=== PATIENT | female | born 1990 ===

== ENCOUNTER 2016-11-01 10:35 | Inpatient (IN) | payer OTHER ==
--- NOTE | 2016-11-01 13:26 | US ---
BIOPHYSICAL PROFILE COMPARISON: Ultrasound complete less than 14 week, 03/26/2016 HISTORY: Gestational age 37 weeks 6 days. Decreased movement. Nonreactive nonstress test. FINDINGS: breathing movements: 0 motion: 2 tone: 0 Amniotic fluid volume: 2 (CHAVO 8.0 cm) deepest vertical pocket 4.9 cm heart rate: 136 bpm Presentation: Footling breech anatomy: The right kidney and right renal artery are not visible. IMPRESSION: 1. Abnormal biophysical profile score 4 out of 8. 2. Low normal amniotic fluid index 8.0 cm. 3. Footling breech position. 4. Nonvisualization of the right kidney in the right renal artery. 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 The results were discussed with August Mackay M.D. 11/01/2016 at 13:20
[2016-11-01] MEDS ORDERED: TERBUTALINE SULFATE 1 MG/ML VIAL SUB-Q ONE (14:12)
--- NOTE | 2016-11-01 14:12 | PDOC36 ---
Provider Note Subject: cc: Admission H&P HPI: 26 y.o. year old XENIA 11/15/2016, by Last Menstrual Period at 38w0d. Patient presents from clinic today with decreased FM and non reactive monitoring. Patient underwent BPP with 4/8 score due to loss of tone and breathing. Additionally she was found in breech position and with CHAVO of 8. REVIEW OF SYSTEMS GENERAL: No fever or headache EYES: No double or blurry vision. CARDIOVASCULAR: No chest pain. RESPIRATORY: No severe shortness of breath or cough. GASTROINTESTINAL: No nausea or vomiting or right upper quadrant pain. PSYCHIATRIC: No anxiety or depression. PROBLEMS Patient Active Problem List Diagnosis Date Noted Normal 03/29/2016 Threatened miscarriage 03/29/2016 OB HISTORY #: 1, Date: 07/01/10, Sex: Female, Weight: 3.118 kg (6 lb 14 oz), GA: 40w0d, Delivery: Vaginal, Spontaneous Delivery, Apgar1: 6, Apgar5: 9, Living: Yes, Comments: cord around body/arm x1 #: 2, Current Dating: Based On XENIA GA Dif Comments GA Cyc Lut BC Entered By Date Last Menstrual Period on 02/09/16 (Exact Date) 11/15/16 Working Planned , pt and partner are happy. Regine Segovia RN 04/20/16 Ultrasound on 03/26/16 11/17/16 -2d 6w2d Regine Segovia RN 04/20/16 Ultrasound on 06/28/16 11/19/16 -4d c/w lmp. girl. normal survey. ant grade 1 placenta, no previa. normal fluid. 19w3d Tatiana Hernandez MD 06/28/16 PSH No past surgical history on file. SOC HX reports that she has never smoked. She has never used smokeless tobacco. She reports that she does not drink alcohol or use illicit drugs. ALL No Known Allergies MEDICATIONS Current outpatient prescriptions: acetaminophen (TYLENOL) 325 MG tablet, Take 2 tablets (650 mg total) by mouth 2 (two) times a day as needed for headaches., Disp: 60 tablet, Rfl: 2 diphenhydrAMINE (BENADRYL) 25 mg capsule, Take 1 capsule (25 mg total) by mouth 2 (two) times a day as needed for itching Indications: Runny Nose., Disp: 30 capsule, Rfl: 0 Vit-Iron Carbonyl-FA (PNV TABS 29-1) 29-1 MG tablet, TAKE ONE TABLET BY MOUTH EVERY DAY, Disp: 90 tablet, Rfl: 3 psyllium (METAMUCIL) 58.6 % powder, PO BID after meals, mix with 8oz of water , Disp: 283 g, Rfl: 12 PHYSICAL EXAMINATION VITAL SIGNS: Afebrile, BP 119/76 Estimated body mass index is 31.62 kg/(m^2) as calculated from the following: Height as of 10/21/16: 1.49 m (4' 10.66"). Weight as of an earlier encounter on 11/01/16: 70.2 kg (154 lb 12.2 oz). Total weight gain is 8.8 kg (19 lb 6.4 oz) FHT: 120's baseline, mod verónica, + accels, no decels Concepcion: absent ctx SVE: deferred at this time till after version GENERAL: No distress CARDIOVASCULAR: Regular rate and rhythm, no murmur RESPIRATORY: Clear to auscultation bilaterally, respiratory effort is nonlabored at rest. GASTROINTESTINAL: Gravid no fundal tenderness, transverse position PSYCHIATRIC: Alert and oriented x3, judgement and memory is intact, mood is pleasant. LABS & STUDIES A+ Antibody- Rubella Immune Hep B- HIV- GC/Chlamydia- Trep- Hgb 12 GBS neg ASSESSMENT 26 y.o. year old XENIA 11/15/2016, by Last Menstrual Period at 38w0d who presents with BPP 4/8 in breech position. PLAN Breech/transverse position- COunseled pt on concern of non reassuring findings of BPP of 4/8. We reviewed that I believe she needs to proceed with delivery due to this findings. I spoke with Dr. Orourke at [facility] regarding version and they agree given FM is category I and CHAVO of 8 without clear oligo could be attempted. I reviewed the risks and benefits of this procedure with family. They would like to proceed. If we are unsuccessful they understand we will then need to proceed with LTCS. Hopefully we can turn baby and proceed with IOL however. Right kidney discrepancy- Could be secondary to late term US and poor visualization. 19 week US with visualization of bilateral kidneys. They also could be agenesis vs fusion of single kidney. Will need f/u US. FWB- category I RH- + GBS neg
[2016-11-01] MEDS ORDERED: LACTATED RINGERS 1,000 ML ONE (14:25)
[2016-11-01] MEDS ORDERED: IV START KIT ONE (14:25)
[2016-11-01] MEDS: LACTATED RINGERS 1,000 ML IV SCH ×3 (14:50→19:43)
[2016-11-01 15:16] LABS: HEMATOCRIT 39.2 % (37.0-47.0); HEMOGLOBIN 13.1 gm/l (12.0-16.0); MEAN CORPUSCULAR HEMOGLOBIN 30.8 pg (27.0-31.0); MEAN CORPUSCULAR HGB CONC 33.4 g/dl (33.0-37.0); RED CELL DISTRIBUTION WIDTH 14.7 % (11.5-14.5)
[2016-11-01 15:48] VITALS: BMI 31.6
[2016-11-01] MEDS ORDERED: CEFAZOLIN SODIUM 2 GRAM DUPLEX 2 G in Premix (D5W) 50 ml 1 EACH IV PRN (16:44)
[2016-11-01] MEDS ORDERED: LACTATED RINGERS 1,000 ML IV SCH (16:45)
[2016-11-01] MEDS ORDERED: MORPHINE SULFATE (DURAMORPH) 1 MG/ML 10ML AMP ONE (16:47)
[2016-11-01] MEDS ORDERED: EPHEDRINE SULFATE UD SYR 25 MG 25 MG/5 ML SYRINGE IV ONE (16:47)
[2016-11-01] MEDS ORDERED: FENTANYL 100 MCG/2 ML VIAL ONE ×2 (16:48→17:56)
[2016-11-01] MEDS ORDERED: OXYTOCIN 10 UNITS/ML VIAL ONE (16:49)
[2016-11-01] MEDS ORDERED: SPINAL PROCEDURAL TRAY 1 EACH ONE (16:51)
[2016-11-01] MEDS ORDERED: CEFAZOLIN SODIUM 2 GRAM DUPLEX 50 ML IV ONE (16:52)
--- NOTE | 2016-11-01 16:55 | PDOC36 ---
Provider Note Subject: Procedure note: External cephalic version Patient was counseled on risks and benefits of procedure including distress, need for urgent LTCS, or failure of the procedure. Intravenous access was obtained and CBC was evaluated with normal values. Terbutaline was then administered at start of procedure. monitoring was noted to be category 1 with baseline in 120's and good accels appreciated. Bedside ultrasound identified in transverse position with footling breech. Pressure was then applied on maternal left to elevated from pelvis. The head did rotate well downward but after release returned to maternal left in unstable lie. We performed second attempt at rotation with godo descent of head below and body in upper abd however again the infant rotated back. I then counseled family on aborting procedure due to unstable lie of infant. Given BPP values and concern for risk of I counseled on proceeding with LTCS. I reviewed risks and benefits of that procedure, including bleeding, infection and injury to surrounding structures- intestines, bladder, urterus, vessels, ureters. Patient is open to blood transfusion should she require that assistance. We also reviewed remote risk of hysterectomy in the event bleeding is uncontrolled.
[2016-11-01] MEDS ORDERED: BUPIVACAINE 0.75% SPINAL AMPUL 2 ML ONE (16:56)
[2016-11-01] MEDS ORDERED: KETAMINE HCL UD SYRINGE 100 MG/2 ML IV ONE (18:05)
[2016-11-01] MEDS ORDERED: SUCCINYLCHOLINE CHL 20 MG/ML DOSE ONE (18:06)
[2016-11-01] MEDS ORDERED: PROPOFOL 20 ML IV ONE (18:06)
[2016-11-01] MEDS ORDERED: KETOROLAC TROMETHAMINE 30 MG/ML 1 ML VIAL ONE (18:10)
[2016-11-01] MEDS ORDERED: ONDANSETRON 4 MG/2ML 2 ML VIAL ONE (18:13)
--- NOTE | 2016-11-01 18:49 | PDOC37 ---
Procedure: Primary Low Transverse Section Date of Procedure: 11/01/16 Preoperative Diagnosis: 1. 38 week intrauterine . 2. Breech presentation 3. Failed version 4. Non reassuring Biophysical profile Postoperative Diagnosis: Same Surgeon: August Mackay MD Assist: Carlos Deal CNM Indication for Procedure: 26 year old, at 38 weeks 0 days who presented with non reassuring BPP in setting of non reactive monitoring. Patient underwent failed cephalic version. Anesthesia: Spinal with Duramorph and converted to general when this was noted to be incomplete block. Complications: None Estimated Blood Loss: 600 mLs IV Fluids: 1500 mLs of LR Medications: 2 gm of Ancef for routine prophylaxis. 20 units of Pitocin. Urine Output: 100 mLs of clear urine Findings: Fluid clear. Normal uterus, ovaries, and tubes. Procedure: The patient was taken to the operating room where spinal anesthesia was placed. She was then prepared and draped in the normal sterile fashion in the dorsal supine position with a leftward tilt. A timeout was performed. The patient was pinched several times on lower and upper abd with good anaesthesia noted. A Pfannensteil skin incision was then made with the scalpel and carried through to the underlying layer of fascia with the scalpel. At this time the patient began to have a good deal of pain. We then converted to general anaesthesia. After this was complete the fascia was incised in the midline and the incision extended laterally with the Villagomez scissors. The superior aspect of the fascial incision was then grasped with the Christel clamps, elevated, and the underlying rectus muscles dissected off bluntly and sharply where needed. Attention was then turned to the inferior aspect of the incision which, in a similar fashion, was grasped, tented up with the Christel clamps, and the rectus muscle dissected off bluntly and sharply with Villagomez scissors. The rectus muscles were then in the midline, and the peritoneum was identified and entered bluntly. The peritoneal incision was then extended with good visualization of the bladder. The bladder blade was then inserted and the lower uterine segment incised in a transverse fashion with the scalpel. The uterine incision was then extended laterally by pulling superolaterally on both sides. Membranes were ruptured and fluid was clear. The bladder blade was removed and the lower legs were easily identified. Gentle traction was used to deliver the right followed by left leg. The body was rotated prone and the right arm followed by left arm were rotated out. The head was then readily delivered with fundal pressure and gentle traction. The nose and mouth were suctioned with bulb suction and the cord was clamped and cut. The was handed off to the waiting staff antisubmarine officer. Cord gases were sent. The placenta was then delivered with gentle cord traction. The uterus was then exteriorized and cleared of all clots and debris. The uterine incision was repaired with 0 vicryl in a running, locked fashion. A second layer of the same suture was used in an imbricating fashion. Two interrupted sutures with 0 Vicryl were used to obtaine excellent hemostasis. The gutters were cleared of all clots. The uterus was returned to the abdomen. The peritoneum was closed with 3-0 vicryl. The fascia was reapproximated with 0 Vicryl in a running fashion. The subcutaneous tissue was reapproximated with three interrupted 0 vicryl sutures. The skin was closed with rosalina. The patient tolerated the procedure well. Sponge, lap and needle counts were correct times three. A debriefing was held at the end of the procedure with anesthesia and nursing staff. The patient was taken to the recovery room in stable condition.
[2016-11-01] MEDS ORDERED: HYDROMORPHONE HCL 2 MG/ML SYRINGE IV PRN (19:00)
[2016-11-01] MEDS ORDERED: ONDANSETRON 4 MG/2ML 2 ML VIAL IV PRN ×2 (19:00→20:47)
[2016-11-01] MEDS ORDERED: NALOXONE HCL 0.4 MG/ML VIAL IV PRN (19:00)
[2016-11-01] MEDS ORDERED: MORPHINE SULFATE 2 MG/ML SYRINGE IV PRN (19:00)
[2016-11-01] MEDS ORDERED: HYDROMORPHONE HCL 1 MG/ML SYRINGE IV PRN (19:00)
[2016-11-01] MEDS ORDERED: MORPHINE SULFATE 10 MG/ML SYRINGE IV PRN (19:00)
[2016-11-01] MEDS ORDERED: EPHEDRINE SULFATE 50 MG/ML 1ML VIAL IV PRN (19:00)
[2016-11-01] MEDS ORDERED: DIPHENHYDRAMINE HCL 50 MG/1 ML VIAL IV PRN ×2 (19:00→20:47)
[2016-11-01] MEDS ORDERED: NALBUPHINE HCL 20 MG/ML AMP IV PRN (19:00)
[2016-11-01] MEDS ORDERED: MORPHINE SULFATE 4 MG/ML SYRINGE IV PRN (19:00)
[2016-11-01] MEDS ORDERED: OXYTOCIN IN LR 500 ML IV ONE (19:06)
[2016-11-01] MEDS ORDERED: PROMETHAZINE HCL 25 MG/ML VIAL IM ONE (19:15)
[2016-11-01] MEDS ORDERED: LANOLIN 50 APPLIC/7G TUBE TP PRN (20:47)
[2016-11-01] MEDS ORDERED: DIPHENHYDRAMINE HCL 25 MG CAPSULE PO PRN (20:47)
[2016-11-01] MEDS: DOCUSATE SODIUM 100 MG CAPSULE PO SCH (21:56)
[2016-11-02] MEDS ORDERED: LACTATED RINGERS 1,000 ML ONE (00:40)
[2016-11-02] MEDS: KETOROLAC TROMETHAMINE 30 MG/ML 1 ML VIAL IV PRN ×3 (00:45→14:08)
[2016-11-02] MEDS: LACTATED RINGERS 1,000 ML IV SCH ×3 (00:47→19:06)
[2016-11-02 06:34] LABS: HEMATOCRIT 28.9 % (37.0-47.0); HEMOGLOBIN 9.6 gm/l (12.0-16.0)
[2016-11-02] MEDS: DOCUSATE SODIUM 100 MG CAPSULE PO SCH ×2 (09:56→20:35)
[2016-11-02] MEDS: PRENATAL VIT/FE FUMARATE/FA 1 TABLET PO SCH (09:56)
--- NOTE | 2016-11-02 11:00 | PDOC44 ---
- Subjective Day: 1 (post-operative day 1) Patient doing well. States pain controlled with meds. Fowler still in. Passing gas. Tolerating PO. Reports Flatus, Reports Pain Tolerable, Reports , Reports Lochia Light, Reports Tolerating Regular Diet, Denies Nausea, Denies Vomiting - Objective Temp Pulse Resp BP Pulse Ox 98.3 F 74 18 105/53 11/02/16 08:20 11/02/16 08:20 11/02/16 08:20 11/02/16 08:20 Lab Results 11/02/16 11/01/16 06:10 14:50 WBC 8.6 RBC 4.26 Hgb 9.6 L D 13.1 Hct 28.9 L 39.2 Plt Count 303 11/01/16 14:50 RDW 14.7 H Current Medications Generic Name Dose Route Start Last Admin Trade Name Freq PRN Reason Stop Dose Admin Diphenhydramine HCl 25 - 50 mg 11/01/16 19:00 Benadryl IV 11/02/16 17:25 Q4H PRN Itching Diphenhydramine HCl 25 - 50 mg 11/01/16 20:47 Benadryl PO Q6H PRN Itching (Mild/Moderate) Diphenhydramine HCl 25 - 50 mg 11/01/16 20:47 Benadryl IV Q6H PRN Itching (Severe) Docusate Sodium 100 mg 11/01/16 21:00 11/02/16 09:56 Colace PO 100 mg BID HALEIGH Administration Emollient Ointment 1 applic 11/01/16 20:47 [id number] TP PRN PRN sore nipples Ephedrine Sulfate 5 - 10 mg 11/01/16 19:00 Ephedrine Sulfate IV 11/02/16 17:25 Q5M PRN Hydromorphone HCl 0.5 - 2 mg 11/01/16 19:00 Dilaudid IV 11/02/16 17:25 Q1H PRN Pain (Breakthrough) Hydromorphone HCl 0.5 - 2 mg 11/01/16 19:00 Dilaudid IV 11/02/16 17:25 Q1H PRN Pain Lactated Ringer's 1,000 mls @ 100 mls/hr 11/02/16 07:00 11/02/16 00:47 Lactated Ringers IV 100 mls/hr .Q10H HALEIGH Administration Ibuprofen 800 mg 11/02/16 00:15 Motrin PO Q6H PRN Pain Ketorolac Tromethamine 30 mg 11/02/16 00:15 11/02/16 06:30 Toradol IV 11/06/16 18:15 30 mg Q6H PRN Administration Pain (Mild/Moderate) Morphine Sulfate 1 - 5 mg 11/01/16 19:00 Morphine Sulfate IV 11/02/16 17:25 Q1H PRN Pain (Breakthrough) Morphine Sulfate 1 - 5 mg 11/01/16 19:00 Morphine Sulfate IV 11/02/16 17:25 Q1H PRN Pain (Breakthrough) Morphine Sulfate 1 - 5 mg 11/01/16 19:00 Morphine Sulfate IV 11/02/16 17:25 Q1H PRN Pain (Breakthrough) Multivi/Iron Carb/Fe Sulf/FA/Prenat 1 tab 11/02/16 09:00 11/02/16 09:56 Plus PO 1 tab DAILY HALEIGH Administration Nalbuphine HCl 1 - 5 mg 11/01/16 19:00 Nubain IV 11/02/16 17:25 Q4H PRN Itching Naloxone HCl 0.2 - 0.4 mg 11/01/16 19:00 Narcan IV 11/02/16 17:25 Q5M PRN Ondansetron HCl 4 mg 11/01/16 19:00 Zofran IV 11/02/16 17:25 Q6H PRN Nausea/Vomiting Ondansetron HCl 4 mg 11/01/16 20:47 Zofran IV Q6H PRN Nausea/Vomiting Oxycodone/Acetaminophen 1 - 2 tab 11/01/16 20:47 Percocet 5/325 PO Q4H PRN Pain (Moderate) Sodium Chloride 10 ml 11/01/16 20:47 11/02/16 09:56 Normal Saline 10ml Flush IV 10 ml PRN PRN Administration IV Flush - Physical Exam General: Afebrile, No Acute Distress Psych/Mental Status: Mood/Affect Appropriate, Bonding Well Neurological: Alert, Normal Speech Lungs: Clear to Auscultation Bilaterally, Normal Air Movement Cardiovascular: Regular Rate and Rhythm, Normal S1, Normal S2 Fundus: Firm, Midline Extremities: Full ROM, No Edema, No Tenderness Skin: Normal Color, Warm, Dry, Intact, No Rash Wound HEAD BUYER TOBACCO: Dressing Clean/Dry/Intact - Problems:Assessment/Plan (1) delivery delivered Status: Acute Assessment/Plan: POD #1 s/p primary C/S for breech after failed version. Doing well Continue post-op care BF support Mild anemia, plan to start iron as outpatient. Disposition: Stable
[2016-11-02] MEDS: IBUPROFEN 800 MG TABLET PO PRN ×2 (17:44→23:21)
[2016-11-03] MEDS: LACTATED RINGERS 1,000 ML IV SCH ×2 (08:58→14:06)
[2016-11-03] MEDS: PRENATAL VIT/FE FUMARATE/FA 1 TABLET PO SCH (09:16)
[2016-11-03] MEDS: DOCUSATE SODIUM 100 MG CAPSULE PO SCH (09:16)
[2016-11-03] MEDS: IBUPROFEN 800 MG TABLET PO PRN ×3 (09:16→22:40)
--- NOTE | 2016-11-03 10:25 | PDOC44 ---
- Subjective Day: 2 lightheaded in bathroom feels well now. tolerating regular diet. minimal lochia Reports Flatus, Reports Pain Tolerable, Reports , Reports Lochia Light, Reports Tolerating Regular Diet - Objective Temp Pulse Resp BP Pulse Ox 98.1 F 76 18 110/58 11/03/16 08:00 11/03/16 09:15 11/03/16 08:00 11/03/16 09:15 Current Medications Generic Name Dose Route Start Last Admin Trade Name Freq PRN Reason Stop Dose Admin Diphenhydramine HCl 25 - 50 mg 11/01/16 20:47 Benadryl PO Q6H PRN Itching (Mild/Moderate) Diphenhydramine HCl 25 - 50 mg 11/01/16 20:47 Benadryl IV Q6H PRN Itching (Severe) Docusate Sodium 100 mg 11/01/16 21:00 11/03/16 09:16 Colace PO 100 mg BID HALEIGH Administration Emollient Ointment 1 applic 11/01/16 20:47 [id number] TP PRN PRN sore nipples Lactated Ringer's 1,000 mls @ 100 mls/hr 11/02/16 07:00 11/03/16 08:58 Lactated Ringers IV Not Given .Q10H HALEIGH Ibuprofen 800 mg 11/02/16 00:15 11/03/16 09:16 Motrin PO 800 mg Q6H PRN Administration Pain Ketorolac Tromethamine 30 mg 11/02/16 00:15 11/02/16 14:08 Toradol IV 11/06/16 18:15 30 mg Q6H PRN Administration Pain (Mild/Moderate) Multivi/Iron Carb/Fe Sulf/FA/Prenat 1 tab 11/02/16 09:00 11/03/16 09:16 Plus PO 1 tab DAILY HALEIGH Administration Ondansetron HCl 4 mg 11/01/16 20:47 Zofran IV Q6H PRN Nausea/Vomiting Oxycodone/Acetaminophen 1 - 2 tab 11/01/16 20:47 Percocet 5/325 PO Q4H PRN Pain (Moderate) Sodium Chloride 10 ml 11/01/16 20:47 11/03/16 08:03 Normal Saline 10ml Flush IV 10 ml PRN PRN Administration IV Flush - Physical Exam General: Afebrile Neurological: Alert Lungs: Clear to Auscultation Bilaterally Cardiovascular: Regular Rate and Rhythm Breast: Soft Fundus: Firm Abdomen: Normal Bowel Sounds Rectal Exam: Deferred Extremities: Other (nt no edema) Wound PEARL DIVER: Dressing Clean/Dry/Intact, [place] Intact - Problems:Assessment/Plan (1) delivery delivered Status: Acute Assessment/Plan: POD #2 s/p primary C/S for breech after failed version. Doing well Continue post-op care BF support sycope this am push fluids, rest home tomorrow Disposition: Anticipate DC Home Tomorrow
[2016-11-04] MEDS: OXYCODONE/ACETAMINOPHEN 5/325 MG TABLET PO PRN ×2 (01:38→07:12)
[2016-11-04 07:02] VITALS: BP 110/58
[2016-11-04] MEDS: IBUPROFEN 800 MG TABLET PO PRN (07:12)
--- NOTE | 2016-11-04 09:01 | PDOC39B ---
Hospital Course: ADMIT DATE: 11/01/16 DISCHARGE DATE: 11/02/16 ADMISSION DIAGNOSES: breech presentation, term PROCEDURES: Primary C/S HISTORY OF PRESENT ILLNESS: 26 year old G2 T1 L1 at 38 weeks 0 days presenting with breech presentation, version was attempted and failed. HOSPITAL COURSE: The patient underwent primary LTCS for breech. She is doing well. No concerns. By day of discharge the patient is ambulating, eating, voiding, and passing flatus without difficulty. Pain is controlled and lochia is appropriate. She is [] - Physical Exam Vital Signs: Temp Pulse Resp BP Pulse Ox 98.3 F 72 16 110/58 11/04/16 06:57 11/04/16 06:57 11/04/16 06:57 11/04/16 06:57 General: Afebrile Psych/Mental Status: Mood/Affect Appropriate Neurological: Alert HEENT: Atraumatic Lungs: Clear to Auscultation Bilaterally Cardiovascular: Regular Rate and Rhythm Breast: Soft Fundus: Firm, At Umbilicus Abdomen: Normal Bowel Sounds Genitourinary: Normal Female Genitalia Lochia: Light Rectal Exam: Deferred Extremities: Other (nt, no edema) Skin: Normal Color Wound: Rosalina Intact - Discharge Diagnosis (1) delivery delivered Status: Acute Assessment/Plan: POD #3 s/p primary C/S for breech after failed version. Doing well Continue post-op care BF support home today remove rosalina - Discharge Plan Condition: Good Disposition: Home Prescriptions: Ibuprofen [Motrin] 800 mg PO Q8H PRN #30 tablet PRN Reason: Pain Oxycodone HCl/Acetaminophen [PERCOCET 5/325 MG TABLET (SHF)] 1 tab PO Q4-6H PRN #30 tab PRN Reason: Pain Follow-Up: Tatiana Hernandez MD [Primary Care Provider] - In 2 weeks
== END 2016-11-04 12:12 | disposition home or self-care (01) | DRG 766 ==
LOC: FBC 10:35 → FBCOUT 10:35 → FBC 13:55
PROVIDERS: ADMIT Family Medicine; ATTEND Family Medicine
PROC: 10D00Z1 Extraction of Products of Conception, Low, Open Approach (ICD-10-PCS; principal; 2016-11-01)
PROC: 10S0XZZ Reposition Products of Conception, External Approach (ICD-10-PCS; 2016-11-01)
DX: O36.8130 Decreased fetal movements, third trimester, not applicable or unspecified (principal); O32.1XX0 Maternal care for breech presentation, not applicable or unspecified; Z37.0 Single live birth; Z3A.38 38 weeks gestation of pregnancy